=== PATIENT | male | born 1995 | race Caucasian/White ===

== ENCOUNTER → 2020-11-18 | Outpatient (CLI) | payer SELFPAY | LOC: M LABSMTC 12:46 | PROVIDERS: ATTEND Pediatrics | DX: Z20.828 Contact with and (suspected) exposure to other viral communicable diseases (principal) ==

== ENCOUNTER 2022-02-08 16:09 | Emergency (ER) | payer MEDICAID, SELFPAY ==
[~2022-02-08] VITALS: Ht 180.3 cm; Wt 74.5 kg
[2022-02-08 19:25] LABS: BASO % 0.6 % (0.0-1.0); EOS # 0.1 10^3/uL (0.0-0.5); EOS % 1.7 % (0.0-3.0); HEMATOCRIT 44.5 % (42.0-52.0); HEMOGLOBIN 15.3 g/dl (13.5-17.5); LYMPH # 2.8 10^3/uL (1.5-5.0); LYMPH % 40.3 % (24.0-44.0); MEAN CORPUSCULAR HEMOGLOBIN 29.8 pg (27.0-33.0); MEAN CORPUSCULAR HGB CONC 34.4 g/dl (32.0-36.5); MEAN CORPUSCULAR VOLUME 86.7 fl (80.0-96.0); MONO # 0.6 10^3/uL (0.0-0.8); MONO % 8.2 % (2.0-8.0); NEUTROPHILS # 3.4 10^3/uL (1.5-8.5); NEUTROPHILS % 48.9 % (36.0-66.0); PLATELET COUNT, AUTOMATED 306 10^3/uL (150-450); RED BLOOD COUNT 5.13 10^6/uL (4.30-6.10); WHITE BLOOD COUNT 6.9 10^3/uL (4.0-10.0)
[2022-02-08 19:55] LABS: FREE THYROXINE INDEX 3.8 % (1.4-3.8); THYROID STIMULATING HORMONE 1.4 uIU/ML (0.358-3.740); THYROXINE (T4) 10.1 UG/DL (4.5-12.0)
[2022-02-08] MEDS ORDERED: HYDR-3363 PO (20:10)
[2022-02-08] MEDS ORDERED: hydrOXYzine 25 MG TAB PO STA (20:15)
[2022-02-08 20:34] VITALS: BP 137/75
[2022-02-09] MEDS ORDERED: UNRESOLVED CLARIFICATION ENTRY XX SCH (00:01)
== END 2022-02-08 20:35 | disposition home or self-care (01) ==
LOC: M ED 16:09
DX: F43.0 Acute stress reaction (principal); R07.9 Chest pain, unspecified; R00.2 Palpitations

== ENCOUNTER 2022-05-18 12:52 | Emergency (ER) | payer MEDICAID, OTHER ==
[~2022-05-18] VITALS: Ht 177.8 cm; Wt 70.7 kg
[~2022-05-18 12:52] MED LIST: HYDR-3363 PO
[2022-05-18] MEDS ORDERED: AZO-95TA3 PO (13:37)
[2022-05-18 15:17] LABS: GC DNA AMPLIFICATION NEGATIVE (NEGATIVE)
[2022-05-18 15:58] LABS: BASO % 0.5 % (0.0-1.0); EOS % 0.5 % (0.0-3.0); HEMATOCRIT 47.9 % (42.0-52.0); HEMOGLOBIN 15.9 g/dl (13.5-17.5); LYMPH # 1.6 10^3/uL (1.5-5.0); LYMPH % 26.3 % (24.0-44.0); MEAN CORPUSCULAR HEMOGLOBIN 29.7 pg (27.0-33.0); MEAN CORPUSCULAR HGB CONC 33.2 g/dl (32.0-36.5); MEAN CORPUSCULAR VOLUME 89.5 fl (80.0-96.0); MONO # 0.4 10^3/uL (0.0-0.8); MONO % 6.7 % (2.0-8.0); NEUTROPHILS # 3.9 10^3/uL (1.5-8.5); NEUTROPHILS % 65.7 % (36.0-66.0); PLATELET COUNT, AUTOMATED 273 10^3/uL (150-450); RED BLOOD COUNT 5.35 10^6/uL (4.30-6.10)
[2022-05-18 16:18] LABS: BLOOD UREA NITROGEN 10 MG/DL (7-18); CALCIUM LEVEL 9.6 MG/DL (8.5-10.1); CARBON DIOXIDE LEVEL 28 MEQ/L (21-32); CHLORIDE LEVEL 109 MEQ/L (98-107); CREATININE FOR GFR 0.96 MG/DL (0.70-1.30); ERYTHROCYTE SEDIMENTATION RATE 1 mm/hr (0-15); GLOMERULAR FILTRATION RATE > 60.0 (>60); GLUCOSE, FASTING 93 MG/DL (70-100); POTASSIUM SERUM 4.2 MEQ/L (3.5-5.1); SODIUM LEVEL 141 MEQ/L (136-145)
[2022-05-18 16:58] VITALS: BP 124/78
== END 2022-05-18 17:01 | disposition home or self-care (01) ==
LOC: M ED 12:52
DX: R30.0 Dysuria (principal); R10.2 Pelvic and perineal pain; F90.9 Attention-deficit hyperactivity disorder, unspecified type; Z79.899 Other long term (current) drug therapy